=== PATIENT | female | born 1975 | race Hispanic/Latino ===

== ENCOUNTER 2017-10-15 09:32 | Outpatient (CLI) | payer BC ==
--- NOTE | 2017-10-15 10:50 | RAD ---
RIGHT KNEE 3 VIEWS LEFT KNEE FRONTAL VIEW: Date: 10/15/17 CLINICAL HISTORY: Pain. FINDINGS: Frontal standing view of knees, bilaterally, reveals mild osteoarthritis with preferential height los s of the medial compartment of the right knee. There is tricompartment osteophytosis of the right kne e. No fracture or significant joint capsular distention. IMPRESSION: Bilateral mild knee joint osteoarthritis. No acute osseous abnormality. POS: [facility]
== END 2017-10-15 09:33 | disposition home or self-care (01) ==
LOC: NAV RAD 09:32
PROVIDERS: ATTEND Orthopaedic Surgery
DX: M25.561 Pain in right knee (principal); M17.0 Bilateral primary osteoarthritis of knee